=== PATIENT | male | born 1990 | race Caucasian/White ===

== ENCOUNTER 2017-07-15 21:29 | Emergency (ER) | payer SELFPAY, OTHER ==
[2017-07-16] MEDS: IBUPROFEN 600 MG TAB PO (00:14)
[2017-07-16] MEDS: ACETAMINOPHEN 325 MG TAB PO (00:14)
== END 2017-07-16 02:16 | disposition home or self-care (01) ==
LOC: FTE 07-16 02:16
DX: J10.1 Influenza due to other identified influenza virus with other respiratory manifestations (principal)
CPT/HCPCS: 87400; 99283